=== PATIENT | female | born 1955 | race Two or more races ===

== ENCOUNTER 2023-09-01 08:10 | Emergency (ER) | payer OTHER ==
[~2023-09-01] VITALS: Ht 162.6 cm; Wt 59.6 kg
[2023-09-01] MEDS: methylPREDNISolone SOD SUCC 125 MG/2 ML VL IM ONE (08:48)
[2023-09-01] MEDS: ALBUTEROL SULF 2.5 MG/0.5ML(0.5%) NEB SOLN NEB ONE (08:56)
[2023-09-01] MEDS: IPRATROPIUM BROM 0.5 MG/2.5ML INH SOL NEB ONE (08:56)
[2023-09-01 09:08] VITALS: BP 108/59; PULSE 72; RESP 16; TEMP 97.1; O2SAT 96
[2023-09-01] MEDS ORDERED: ALB5IS NEB (09:26)
[2023-09-01] MEDS ORDERED: PRED20TA2 PO (09:26)
== END 2023-09-01 09:29 | disposition home or self-care (01) ==
LOC: ER 08:10
DX: J45.901 Unspecified asthma with (acute) exacerbation (principal)
CPT/HCPCS: 71046; 94640; 96372; 99283; J2930; J7644

== ENCOUNTER 2024-03-24 18:20 | Emergency (ER) | payer OTHER ==
[~2024-03-24] VITALS: Ht 160 cm; Wt 57.6 kg
[~2024-03-24 18:20] MED LIST: ALB5IS NEB; PRED20TA2 PO
[2024-03-24] MEDS: methylPREDNISolone SOD SUCC 125 MG/2 ML VL IM ONE (19:50)
[2024-03-24] MEDS: ALBUTEROL SULF 2.5 MG/0.5ML(0.5%) NEB SOLN NEB ONE (20:29)
[2024-03-24] MEDS: IPRATROPIUM BROM 0.5 MG/2.5ML INH SOL NEB ONE (20:30)
[2024-03-24 20:32] VITALS: BP 105/60; PULSE 61; RESP 20; TEMP 97.8; O2SAT 96
[2024-03-24] MEDS ORDERED: FLUT1INH30 IN (21:03)
== END 2024-03-24 21:08 | disposition home or self-care (01) ==
LOC: ER 18:20
DX: J45.901 Unspecified asthma with (acute) exacerbation (principal)
CPT/HCPCS: 94640; 96372; 99283; J2919